=== PATIENT | female | born 1950 | race Caucasian/White ===

== ENCOUNTER 2019-05-06 09:21 | Outpatient (CLI) | payer MEDICARE, BC ==
[~2019-05-06 09:21] MED LIST: ASPI325T17 PO; ASPI325T80 PO; CALCIUM & VIT D PO; CARV6.252 PO; FLEC100T PO; MAGN300C PO; METH4TAB2 PO; MULT-516 PO; OXYC5CAP2 PO; OXYC5TAB2 PO; TRAM50TA2 PO; TRIA1TAB3 PO
[2019-05-06] MEDS ORDERED: LIDOCAINE 1%, 20ML ONE (09:38)
[2019-05-06] MEDS ORDERED: BUPIVACAINE/PF 0.5% ONE (09:38)
[2019-05-06] MEDS ORDERED: ROPivacaine/PF 0.2%, 10 ML ONE (09:39)
[2019-05-06] MEDS ORDERED: TRIAMCINOLONE ACETONIDE 40 MG/ML, 1ML ONE ×2 (09:39)
[2019-05-06] MEDS ORDERED: OMNIPAQUE 300 MG/ML, 10ML VIAL ONE (12:02)
== END 2019-05-06 23:59 | disposition home or self-care (01) ==
LOC: RAD 09:21
PROVIDERS: ATTEND Nurse Practitioner
DX: M19.072 Primary osteoarthritis, left ankle and foot (principal); M19.071 Primary osteoarthritis, right ankle and foot; M21.40 Flat foot [pes planus] (acquired), unspecified foot; I10 Essential (primary) hypertension; Z72.89 Other problems related to lifestyle; Z79.899 Other long term (current) drug therapy; Z87.891 Personal history of nicotine dependence; Z88.8 Allergy status to other drugs, medicaments and biological substances; Z82.61 Family history of arthritis; Z82.3 Family history of stroke
CPT/HCPCS: 20600; 20605; 77002; J2795; J3301; Q9967